=== PATIENT | female | born 1950 | race Caucasian/White ===

== ENCOUNTER 2017-10-07 14:20 | Emergency (ER) | payer MEDICARE, OTHER ==
--- NOTE | 2017-10-07 14:59 | CR ---
Chest 1V Frontal INDICATION: chest pain FINDINGS: Negative AP portable chest x-ray.
[2017-10-07] MEDS ORDERED: Aspirin 81 MG Tab.Chew PO ONE (15:47)
[2017-10-07] MEDS ORDERED: Nitroglycerin 0.4 MG Tab.SL SL ONE (15:48)
--- NOTE | 2017-10-07 16:02 | EDM.PDOC ---
ED HPI GENERAL MEDICAL PROBLEM - General Chief Complaint: Chest Pain Stated Complaint: CHEST PAIN Time Seen by Provider: 10/07/17 14:35 Source of Information: Reports: Patient History Limitations: Reports: No Limitations - History of Present Illness INITIAL COMMENTS - FREE TEXT/NARRATIVE: pt has pain on the left side and going back under the left arm. She is not feeling sob. She was at [employer] on pm. Onset: Other ( this started 3 days ago, ) Duration: Day(s): Location: Reports: Chest Associated Symptoms: Reports: Chest Pain, Shortness of Breath Left Chest Pain Score (Numeric/FACES): 2 - Related Data Allergies Allergy/AdvReac Type Severity Reaction Status Date / Time No Known Allergies Allergy Verified 10/07/17 14:36 Home Meds: Home Meds DULoxetine [Cymbalta] 1 tab PO BEDTIME 03/14/16 [History] Ketoconazole [Nizoral 2% Crm] 1 applic TOP BID PRN 03/14/16 [History] *Canabis 10/07/17 [History] Past Medical History HEENT History: Reports: Impaired Vision Respiratory History: Reports: TB Other Respiratory History: PLEURISY Gastrointestinal History: Reports: Colon Polyp Other Gastrointestinal History: diarrhea for 3 weeks 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 fine now - Past Surgical History GI Surgical History: Reports: Appendectomy Other GI Surgeries/Procedures: C DIFF COMPLICATIONS Female Surgical History: Reports: Section Musculoskeletal Surgical History: Reports: None Social & Family History - Tobacco Use Smoking Status *Q: Unknown Ever Smoked Second Hand Smoke Exposure: No - Alcohol Use Days Per Week of Alcohol Use: 1 Number of Drinks Per Day: 1 Total Drinks Per Week: 1 - Recreational Drug Use Recreational Drug Use: Yes Drug Use in Last 12 Months: Yes Recreational Drug Type: Reports: Marijuana/Hashish ED ROS GENERAL - Review of Systems Review Of Systems: See Below Constitutional: Reports: No Symptoms HEENT: Reports: No Symptoms Respiratory: Reports: Other (pain in left chest. She does not hurt to take a deep breath. ) Cardiovascular: Reports: Chest Pain Endocrine: Reports: No Symptoms GI/Abdominal: Reports: No Symptoms : Reports: No Symptoms ED EXAM, GENERAL - Physical Exam Exam: See Below Free Text/Narrative:: Pt arrived with pain in the left chest. She has not been sweaty and she has not been nauseated. Exam Limited By: No Limitations General Appearance: Alert, Mild Distress Ears: Normal TMs Nose: Normal Inspection Throat/Mouth: Normal Inspection Head: Atraumatic Neck: Normal Inspection Respiratory/Chest: No Respiratory Distress Cardiovascular: Regular Rate, Rhythm GI/Abdominal: Soft, Non-Tender (Female) Exam: Deferred Rectal (Female) Exam: Deferred Back Exam: Normal Inspection Extremities: Normal Inspection Neurological: Alert, Oriented, Normal Cognition Psychiatric: Normal Affect, Other (pleasant pt who is concerned about chest discomfort. ) Course - Vital Signs Last Recorded V/S: Last Vital Signs Temp 37.1 C 10/07/17 14:31 Pulse 98 10/07/17 14:31 Resp 15 10/07/17 14:31 BP 154/81 H 10/07/17 15:52 Pulse Ox 98 10/07/17 14:31 - Orders/Labs/Meds Orders: Active Orders 24 hr Category Date Time Status EKG Documentation Completion [RC] ASDIRECTED Care 10/07/17 14:31 Active EKG 12 Lead [EK] Routine Ther 10/07/17 14:31 Ordered Labs: Laboratory Tests 10/07/17 10/07/17 10/07/17 Range/Units 14:30 14:30 14:30 WBC 8.1 (4.5-11.0) K/uL RBC 4.68 (3.30-5.50) M/uL Hgb 14.2 (12.0-15.0) g/dL Hct 43.1 (36.0-48.0) % MCV 92 (80-98) fL MCH 30 (27-31) pg MCHC 33 (32-36) % Plt Count 351 (150-400) K/uL Neut % (Auto) 41 (36-66) % Lymph % (Auto) 46 H (24-44) % [place] % (Auto) 9 H (2-6) % Eos % (Auto) 2 (2-4) % Baso % (Auto) 1 (0-1) % Sodium 144 (140-148) mmol/L Potassium 3.5 L (3.6-5.2) mmol/L Chloride 106 (100-108) mmol/L Carbon Dioxide 25 (21-32) mmol/L Anion Gap 16.5 H (5.0-14.0) mmol/L BUN 14 (7-18) mg/dL Creatinine 0.8 (0.6-1.0) mg/dL Est Cr Clr Drug Dosing 67.27 mL/min Estimated GFR (MDRD) > 60 (>60) Glucose 96 (74-106) mg/dL Calcium 8.8 (8.5-10.1) mg/dL Total Bilirubin 0.4 (0.2-1.0) mg/dL AST 19 (15-37) U/L ALT 30 (12-78) U/L Alkaline Phosphatase 77 (46-116) U/L Creatine Kinase 23 L (26-192) U/L Troponin I < 0.017 (0.000-0.056) ng/mL Total Protein 6.7 (6.4-8.2) g/dL Albumin 3.8 (3.4-5.0) g/dL Globulin 2.9 (2.3-3.5) g/dL Albumin/Globulin Ratio 1.3 (1.2-2.2) Urine Color Urine Appearance Urine pH (4.5-8.0) Ur Specific [place] (1.008-1.030) Urine Protein (NEGATIVE) mg/dL Urine Glucose (UA) (NEGATIVE) mg/dL Urine Ketones (NEGATIVE) mg/dL Urine Occult Blood (NEGATIVE) Urine Nitrite (NEGATIVE) Urine Bilirubin (NEGATIVE) Urine Urobilinogen (NORMAL) mg/dL Ur Leukocyte Esterase (NEGATIVE) Urine RBC (0-5) Urine WBC (0-5) Ur Epithelial Cells Amorphous Sediment Urine Bacteria Urine Mucus 10/07/17 Range/Units 14:49 WBC (4.5-11.0) K/uL RBC (3.30-5.50) M/uL Hgb (12.0-15.0) g/dL Hct (36.0-48.0) % MCV (80-98) fL MCH (27-31) pg MCHC (32-36) % Plt Count (150-400) K/uL Neut % (Auto) (36-66) % Lymph % (Auto) (24-44) % [place] % (Auto) (2-6) % Eos % (Auto) (2-4) % Baso % (Auto) (0-1) % Sodium (140-148) mmol/L Potassium (3.6-5.2) mmol/L Chloride (100-108) mmol/L Carbon Dioxide (21-32) mmol/L Anion Gap (5.0-14.0) mmol/L BUN (7-18) mg/dL Creatinine (0.6-1.0) mg/dL Est Cr Clr Drug Dosing mL/min Estimated GFR (MDRD) (>60) Glucose (74-106) mg/dL Calcium (8.5-10.1) mg/dL Total Bilirubin (0.2-1.0) mg/dL AST (15-37) U/L ALT (12-78) U/L Alkaline Phosphatase (46-116) U/L Creatine Kinase (26-192) U/L Troponin I (0.000-0.056) ng/mL Total Protein (6.4-8.2) g/dL Albumin (3.4-5.0) g/dL Globulin (2.3-3.5) g/dL Albumin/Globulin Ratio (1.2-2.2) Urine Color Yellow Urine Appearance Clear Urine pH 5.0 (4.5-8.0) Ur Specific [place] 1.020 (1.008-1.030) Urine Protein Negative (NEGATIVE) mg/dL Urine Glucose (UA) Normal (NEGATIVE) mg/dL Urine Ketones Negative (NEGATIVE) mg/dL Urine Occult Blood Negative (NEGATIVE) Urine Nitrite Negative (NEGATIVE) Urine Bilirubin Negative (NEGATIVE) Urine Urobilinogen Normal (NORMAL) mg/dL Ur Leukocyte Esterase Negative (NEGATIVE) Urine RBC 0-5 (0-5) Urine WBC 0-5 (0-5) Ur Epithelial Cells Rare Amorphous Sediment Few Urine Bacteria Not seen Urine Mucus Few Meds: Medications Discontinued Medications Generic Name Dose Route Start Last Admin Trade Name Freq PRN Reason Stop Dose Admin Aspirin 324 mg 10/07/17 15:47 10/07/17 15:52 Aspirin PO 10/07/17 15:48 324 mg ONETIME ONE Administration Nitroglycerin 0.4 mg 10/07/17 15:48 10/07/17 15:52 Nitrostat SL 10/07/17 15:49 0.4 mg ONETIME ONE Administration - Re-Assessments/Exams Free Text/Narrative Re-Assessment/Exam: 10/07/17 16:03 no acute changes, --ekg, Cardiac enzymes are normal. Pt was given asa 324 Her other labs looked excelllent. . 10/07/17 16:05 Departure - Departure Time of Disposition: 16:19 Disposition: Home, Self-Care 01 Condition: Fair Clinical Impression: Chest wall pain - Discharge Information Referrals: Beverly Griffin CNM [Primary Care Provider] - Care Plan Goals: moist warm packs to the left ant chest, motrin 600mg tid for the next 5 days. , rtc if the chest pain changes. - My Orders Last 24 Hours: My Active Orders 10/07/17 14:31 EKG Documentation Completion [RC] ASDIRECTED EKG 12 Lead [EK] Routine - Assessment/Plan Last 24 Hours: My Active Orders 10/07/17 14:31 EKG Documentation Completion [RC] ASDIRECTED EKG 12 Lead [EK] Routine
[2017-10-07] MEDS ORDERED: Ketorolac 60 MG/2 ML SDV IM ONE (16:18)
[2017-10-07 16:22] VITALS: BP 151/88
== END 2017-10-07 16:39 | disposition home or self-care (01) ==
LOC: JP.ED 14:20
DX: R07.89 Other chest pain (principal)
CPT/HCPCS: 36415; 71045; 80053; 81001; 82550; 84484; 85025; 93005; 96372; 99285; A9270; J1885; 93010; 99283

== ENCOUNTER 2018-10-30 21:47 | Emergency (ER) | payer MEDICARE, BC ==
[2018-10-30 22:09] VITALS: BP 174/90
[2018-10-30] MEDS: Sulfamethoxazole/Trimethoprim 800-160 MG Tab PO ONE (22:27)
[2018-10-30] MEDS: Phenazopyridine 95 MG Tab PO ONE (22:27)
--- NOTE | 2018-10-30 22:30 | EDM.PDOC ---
ED HPI GENERAL MEDICAL PROBLEM - General Chief Complaint: Genitourinary Problem Stated Complaint: UTI Time Seen by Provider: 10/30/18 22:15 Source of Information: Reports: Patient, Old Records, RN History Limitations: Reports: No Limitations - History of Present Illness INITIAL COMMENTS - FREE TEXT/NARRATIVE: 67 yo female presents with dysuria/frequency. No fever or flank pain. No nausea/ vomiting. Onset: Gradual Onset Date: 10/29/18 Duration: Day(s): (1+) Location: Reports: Pelvis (urethra) Quality: Reports: Burning Severity: Moderate Improves with: Reports: None Worsens with: Reports: Other (time/voiding) Context: Reports: Other (See HPI) Associated Symptoms: Reports: No Other Symptoms Treatments VORTEX OPERATOR: Reports: Other (see below) (none) gu Pain Score (Numeric/FACES): 4 - Related Data Allergies Allergy/AdvReac Type Severity Reaction Status Date / Time No Known Allergies Allergy Verified 10/30/18 22:09 Home Meds: Home Meds DULoxetine [Cymbalta] 1 tab PO BEDTIME 03/14/16 [History] Ketoconazole [Nizoral 2% Crm] 1 applic TOP BID PRN 03/14/16 [History] *Canabis 10/07/17 [History] Sulfamethoxazole/Trimethoprim [Bactrim Ds Tablet] 1 each PO BID #13 tablet 10/30 [Rx] Past Medical History HEENT History: Reports: Hard of Hearing, Impaired Vision Respiratory History: Reports: TB Other Respiratory History: PLEURISY Gastrointestinal History: Reports: Chronic Diarrhea, Colon Polyp Other Gastrointestinal History: diarrhea for 3 weeks 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 fine now - Past Surgical History Respiratory Surgical History: Reports: Lung Biopsies GI Surgical History: Reports: Appendectomy, Colonoscopy, Other (See Below) Other GI Surgeries/Procedures: C DIFF COMPLICATIONS, STOOL TRANSPLANT Female Surgical History: Reports: Section Musculoskeletal Surgical History: Reports: None Social & Family History - Tobacco Use Smoking Status *Q: Never Smoker - Caffeine Use Caffeine Use: Reports: Coffee, Soda - Alcohol Use Days Per Week of Alcohol Use: 2 Number of Drinks Per Day: 1 Total Drinks Per Week: 2 - Recreational Drug Use Recreational Drug Use: No ED ROS GENERAL - Review of Systems Review Of Systems: See Below Constitutional: Reports: No Symptoms HEENT: Reports: No Symptoms Respiratory: Reports: No Symptoms Cardiovascular: Reports: No Symptoms GI/Abdominal: Reports: No Symptoms : Reports: Dysuria, Frequency, Urgency. Denies: Hematuria, Incontinence, Urinary Retention Musculoskeletal: Reports: No Symptoms Skin: Reports: No Symptoms Neurological: Reports: No Symptoms ED EXAM, RENAL/ - Physical Exam Exam: See Below Exam Limited By: No Limitations General Appearance: Alert, WD/WN, No Apparent Distress Ears: Hearing Grossly Normal Nose: Normal Inspection Throat/Mouth: Normal Inspection Head: Atraumatic, Normocephalic Neck: Normal Inspection Respiratory/Chest: No Respiratory Distress Back Exam: No: CVA Tenderness (R), CVA Tenderness (L) Extremities: Normal Inspection Neurological: Alert, Oriented, CN II-XII Intact, Normal Cognition, No Motor/ Sensory Deficits Psychiatric: Normal Affect, Normal Mood Skin Exam: Warm, Dry, Intact, Normal Color, No Rash Course - Vital Signs Last Recorded V/S: Last Vital Signs Temp 36.2 C 10/30/18 22:11 Pulse 84 10/30/18 22:11 Resp 11 L 10/30/18 22:11 BP 174/90 H 10/30/18 22:11 Pulse Ox 96 10/30/18 22:11 - Orders/Labs/Meds Orders: Active Orders 24 hr Category Date Time Status CULTURE URINE [RM] Stat Lab 10/30/18 22:00 Received Labs: Laboratory Tests 10/30/18 Range/Units 22:07 Urine Color Yellow Urine Appearance Cloudy Urine pH 5.0 (4.5-8.0) Ur Specific [place] 1.020 (1.008-1.030) Urine Protein 100 H (NEGATIVE) mg/dL Urine Glucose (UA) Normal (NEGATIVE) mg/dL Urine Ketones Negative (NEGATIVE) mg/dL Urine Occult Blood Large (NEGATIVE) Urine Nitrite Negative (NEGATIVE) Urine Bilirubin Negative (NEGATIVE) Urine Urobilinogen Normal (NORMAL) mg/dL Ur Leukocyte Esterase Large (NEGATIVE) Urine RBC Semi-packed H (0-5) Urine WBC Semi-packed H (0-5) Ur Epithelial Cells Few Amorphous Sediment Not seen Urine Bacteria Many Urine Mucus Not seen Meds: Medications Discontinued Medications Generic Name Dose Route Start Last Admin Trade Name Margaux PRN Reason Stop Dose Admin Phenazopyridine HCl 190 mg 10/30/18 22:23 Urinary Pain Relief PO 10/30/18 22:24 ONETIME ONE Trimethoprim/Sulfamethoxazole 1 tab 10/30/18 22:19 Septra Ds PO 10/30/18 22:20 ONETIME ONE Departure - Departure Time of Disposition: 22:28 Disposition: Home, Self-Care 01 Condition: Good Clinical Impression: Cystitis - Discharge Information *PRESCRIPTION DRUG MONITORING PROGRAM REVIEWED*: No *COPY OF PRESCRIPTION DRUG MONITORING REPORT IN PATIENT ALEKSANDER: No Prescriptions: Sulfamethoxazole/Trimethoprim [Bactrim Ds Tablet] 1 each PO BID #13 tablet Instructions: Urinary Tract Infection, Adult, [id number] Referrals: Beverly Griffin CNM [Primary Care Provider] - Care Plan Goals: Drink ample water. Take TMP/SMZ every 12 hrs. Use AZO per package instructions for discomfort in your bladder/urethra. Recheck in the clinic in 3 days if not improving so your provider can reference your culture to possibly direct antibiotic choice. - My Orders Last 24 Hours: My Active Orders 10/30/18 22:00 CULTURE URINE [RM] Stat - Assessment/Plan Last 24 Hours: My Active Orders 10/30/18 22:00 CULTURE URINE [RM] Stat
== END 2018-10-30 22:36 | disposition home or self-care (01) ==
LOC: JP.ED 21:47
DX: N30.90 Cystitis, unspecified without hematuria (principal)
CPT/HCPCS: 81001; 87086; 99283; 99284; A9270; 87088; 87186

== ENCOUNTER 2018-12-06 14:03 | Emergency (ER) | payer MEDICARE, BC ==
--- NOTE | 2018-12-06 14:27 | EDM.PDOC ---
ED HPI GENERAL MEDICAL PROBLEM - General Chief Complaint: Chest Pain Stated Complaint: CHEST PAIN Time Seen by Provider: 12/06/18 14:25 Source of Information: Reports: Patient, Old Records, RN History Limitations: Reports: No Limitations - History of Present Illness INITIAL COMMENTS - FREE TEXT/NARRATIVE: 67 yo female with fibromyalgia hx and a positive FHx of CAD presents with several days of mild L upper/anterior chest pain that is mild in severity and not associated with diaphoresis, SOB, or nausea. Pain is not related to breathing. No fever or cough. No calf pain or unilateral leg swelling. Has not taken anything for the pain. Pain radiates out in all directions and seems to be less severe the further out it goes. She presented to the clinic today and was sent to the ER. She says her fibromyalgia pain is usually more symmetrical than this. Onset: Gradual Onset Date: 12/03/18 Duration: Day(s): (3+), Constant Location: Reports: Chest Quality: Reports: Dull Severity: Mild Improves with: Reports: None Worsens with: Reports: None Context: Reports: Other (See HPI) Associated Symptoms: Reports: Chest Pain. Denies: Cough, Diaphoresis, Fever/ Chills, Nausea/Vomiting, Rash, Shortness of Breath Treatments BALANCE CLERK: Reports: Other (see below) (none) Left Chest Pain Score (Numeric/FACES): 4 - Related Data Allergies Allergy/AdvReac Type Severity Reaction Status Date / Time No Known Allergies Allergy Verified 10/30/18 22:09 Home Meds: Home Meds DULoxetine [Cymbalta] 60 tab PO BEDTIME 03/14/16 [History] Past Medical History HEENT History: Reports: Hard of Hearing, Impaired Vision Respiratory History: Reports: TB Other Respiratory History: PLEURISY Gastrointestinal History: Reports: Chronic Diarrhea, Colon Polyp Other Gastrointestinal History: diarrhea for 3 weeks 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 fine now - Past Surgical History Respiratory Surgical History: Reports: Lung Biopsies GI Surgical History: Reports: Appendectomy, Colonoscopy, Other (See Below) Other GI Surgeries/Procedures: C DIFF COMPLICATIONS, STOOL TRANSPLANT Female Surgical History: Reports: Section Musculoskeletal Surgical History: Reports: None Social & Family History - Tobacco Use Smoking Status *Q: Never Smoker - Caffeine Use Caffeine Use: Reports: Coffee, Soda - Recreational Drug Use Recreational Drug Use: Yes Recreational Drug Type: Reports: Marijuana/Hashish ED ROS GENERAL - Review of Systems Review Of Systems: See Below Constitutional: Reports: No Symptoms HEENT: Reports: No Symptoms Respiratory: Reports: No Symptoms. Denies: Shortness of Breath, Wheezing, Pleuritic Chest Pain, Cough, Sputum, Hemoptysis Cardiovascular: Reports: Chest Pain. Denies: Dyspnea on Exertion, Edema, Palpitations Endocrine: Reports: No Symptoms GI/Abdominal: Reports: No Symptoms : Reports: No Symptoms Musculoskeletal: Reports: No Symptoms Skin: Reports: No Symptoms Neurological: Reports: No Symptoms Psychiatric: Reports: No Symptoms ED EXAM, GENERAL - Physical Exam Exam: See Below Exam Limited By: No Limitations General Appearance: Alert, WD/WN, No Apparent Distress Eye Exam: Bilateral Eye: Normal Inspection Ears: Normal External Exam, Normal Canal, Hearing Grossly Normal Ear Exam: Bilateral Ear: Auricle Normal, Canal Normal, TM normal Nose: Normal Inspection, Normal Mucosa, No Blood Throat/Mouth: Normal Inspection, Normal Lips, Normal Oropharynx, Normal Voice, No Airway Compromise Head: Atraumatic, Normocephalic Neck: Normal Inspection Respiratory/Chest: No Respiratory Distress, Lungs Clear, Normal Breath Sounds, No Accessory Muscle Use, Chest Non-Tender Cardiovascular: Regular Rate, Rhythm, No Edema GI/Abdominal: Normal Bowel Sounds, Soft, Non-Tender, No Distention Back Exam: Normal Inspection. No: CVA Tenderness (R), CVA Tenderness (L) Extremities: Normal Inspection, Normal Range of Motion, Non-Tender, No Pedal Edema. No: Pedal Edema Neurological: Alert, Oriented, CN II-XII Intact, Normal Cognition, No Motor/ Sensory Deficits Psychiatric: Normal Affect, Normal Mood Skin Exam: Warm, Dry, Intact, Normal Color, No Rash EKG INTERPRETATION EKG Date: 12/06/18 Time: 14:15 Rhythm: NSR Rate (Beats/Min): 64 [place]: Normal P-Wave: Present QRS: Normal ST-T: Normal QT: Normal Comparison: No Change Course - Vital Signs Last Recorded V/S: Last Vital Signs Temp 35.2 C L 12/06/18 14:18 Pulse 62 12/06/18 15:13 Resp 16 12/06/18 15:13 BP 140/76 12/06/18 15:13 Pulse Ox 96 12/06/18 15:13 - Orders/Labs/Meds Orders: Active Orders 24 hr Category Date Time Status EKG Documentation Completion [RC] ASDIRECTED Care 12/06/18 14:23 Active Chest 2V [CR] Stat Exams 12/06/18 14:38 Taken EKG 12 Lead [EK] Routine Ther 12/06/18 14:23 Ordered Labs: Laboratory Tests 12/06/18 Range/Units 14:49 Troponin I < 0.017 (0.000-0.056) ng/mL - Radiology Interpretation Free Text/Narrative:: CXR-neg Departure - Departure Time of Disposition: 15:24 Disposition: Home, Self-Care 01 Condition: Good Clinical Impression: Nonspecific chest pain, Atypical chest pain Instructions: Nonspecific Chest Pain, [id number] Referrals: Beverly Griffin CNM [Primary Care Provider] - Forms: ED Department Discharge Additional Instructions: Follow up with your provider if symptoms persist to discuss any need for exercise stress testing, or other tests. - My Orders Last 24 Hours: My Active Orders 12/06/18 14:23 EKG Documentation Completion [RC] ASDIRECTED EKG 12 Lead [EK] Routine 12/06/18 14:38 Chest 2V [CR] Stat - Assessment/Plan Last 24 Hours: My Active Orders 12/06/18 14:23 EKG Documentation Completion [RC] ASDIRECTED EKG 12 Lead [EK] Routine 12/06/18 14:38 Chest 2V [CR] Stat
[2018-12-06 15:14] VITALS: BP 140/76
--- NOTE | 2018-12-06 15:40 | CRLCR ---
INDICATION: Left anterior chest pain. TECHNIQUE: Two views of the chest PA and lateral. COMPARISON: 10/07/2017 Findings : The heart and mediastinum are unchanged. Lungs are clear. No consolidations or pleural effusions are identified. Trachea is midline. No pneumothorax. IMPRESSION: No evidence of acute disease. Dictated by Paco Viveros MD @ Dec 06 2018 3:36PM Signed by Dr. Paco Viveros @ Dec 06 2018 3:38PM
== END 2018-12-06 15:30 | disposition home or self-care (01) ==
LOC: JP.ED 14:03
DX: R07.89 Other chest pain (principal)
CPT/HCPCS: 36415; 71046; 84484; 93005; 93010; 99285; 99285-25

== ENCOUNTER 2019-05-27 11:05 | Emergency (ER) | payer MEDICARE, BC ==
[2019-05-27 11:21] VITALS: BP 148/89; PULSE 74
--- NOTE | 2019-05-27 12:02 | EDM.PDOC ---
ED HPI GENERAL MEDICAL PROBLEM - General Chief Complaint: ENT Problem Stated Complaint: PAIN IN EARS Time Seen by Provider: 05/27/19 11:45 Source of Information: Reports: Patient History Limitations: Reports: No Limitations - History of Present Illness INITIAL COMMENTS - FREE TEXT/NARRATIVE: 60-year-old female with left-sided ear pain for the past 2 days. She has a hearing aid appointment coming up on Wednesday, so went into the clinic and had her ears washed out on but has had significant pain on the left side since that time. Her hearing has been significantly worsened especially on the left. No fevers or chills, no sore throat. She is on Macrobid for a UTI. Duration: Day(s): (2 days) Location: Reports: Other (Left ear) Associated Symptoms: Denies: Fever/Chills, Headaches, Loss of Appetite, Nausea/ Vomiting, Shortness of Breath Left Ear Pain Score (Numeric/FACES): 5 - Related Data Allergies Allergy/AdvReac Type Severity Reaction Status Date / Time No Known Allergies Allergy Verified 05/27/19 11:19 Home Meds: Home Meds DULoxetine [Cymbalta] 60 tab PO BEDTIME 03/14/16 [History] Nitrofurantoin Roosevelt/Macrocryst [Nitrofurantoin Roosevelt-MCR] 100 mg PO DAILY [History] Nitroglycerin 0.4 mg SL ASDIRECTED 05/27/19 [History] atorvaSTATin Calcium [Atorvastatin Calcium] 40 mg PO BEDTIME 05/27/19 [History] Past Medical History HEENT History: Reports: Hard of Hearing, Impaired Vision Cardiovascular History: Reports: High Cholesterol Respiratory History: Reports: TB Other Respiratory History: PLEURISY Gastrointestinal History: Reports: Chronic Diarrhea, Colon Polyp Other Gastrointestinal History: diarrhea for 3 weeks [employer] History: Reports: Endometrial Ablation, 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 fine now - Past Surgical History Respiratory Surgical History: Reports: Lung Biopsies GI Surgical History: Reports: Appendectomy, Colonoscopy, Other (See Below) Other GI Surgeries/Procedures: C DIFF COMPLICATIONS, STOOL TRANSPLANT Female Surgical History: Reports: Section Musculoskeletal Surgical History: Reports: None Social & Family History - Tobacco Use Smoking Status *Q: Never Smoker - Caffeine Use Caffeine Use: Reports: Coffee, Soda, Tea - Recreational Drug Use Recreational Drug Use: Yes Recreational Drug Type: Reports: Marijuana/Hashish ED ROS ENT - Review of Systems Review Of Systems: See Below Constitutional: Denies: Fever, Chills HEENT: Reports: Ear Pain, Hearing Loss (Bilateral) Respiratory: Denies: Shortness of Breath Cardiovascular: Reports: Other (Mild intermittent chest pain which is being evaluated at the clinic) Skin: Reports: No Symptoms Neurological: Reports: Other (Significant hearing loss). Denies: Headache ED EXAM, ENT - Physical Exam Exam: See Below Exam Limited By: No Limitations General Appearance: Alert, No Apparent Distress Ears: Other (Still some impacted cerumen bilaterally. The right TM is visualized and is normal, nonerythematous. The left however has significant canal erythema, distortion of the TM with dark erythema. It is partially obstructed by cerumen.) Respiratory/Chest: No Respiratory Distress Course - Vital Signs Last Recorded V/S: Last Vital Signs Temp 96.1 F 05/27/19 11:15 Pulse 74 05/27/19 11:15 Resp 16 05/27/19 11:15 BP 148/89 H 05/27/19 11:15 Pulse Ox 99 05/27/19 11:15 - Re-Assessments/Exams Free Text/Narrative Re-Assessment/Exam: 05/27/19 12:01 The remainder of the cerumen was attempted to be removed from the left ear but was unsuccessful. It was partially removed exposing more of the tympanic membrane, no perforation was seen but there was significant erythema and distortion. Patient will be placed on Augmentin 875 twice a day for the next 10 days, and should recheck next week with ENT if not improving satisfactorily. I would hold off on getting checked for hearing aids until she is back to baseline. Also ibuprofen or naproxen will help for pain. Departure - Departure Time of Disposition: 12:09 Disposition: Home, Self-Care 01 Clinical Impression: Left acute otitis media Otitis media Qualifiers: Otitis media type: suppurative Chronicity: acute Laterality: left Recurrence: non-recurrent Spontaneous tympanic membrane rupture: without spontaneous rupture Qualified Code(s): H66.002 - Acute suppurative otitis media without spontaneous rupture of ear drum, left ear - Discharge Information Instructions: Otitis Media, Adult Referrals: Bibi Mendoza DO [Primary Care Provider] - Forms: ED Department Discharge Care Plan Goals: Take Augmentin twice daily as directed with food, ibuprofen or naproxen will help with pain. Recheck early next week with your regular doctor if not significantly improving.
== END 2019-05-27 12:10 | disposition home or self-care (01) ==
LOC: JP.ED 11:05
DX: H66.002 Acute suppurative otitis media without spontaneous rupture of ear drum, left ear (principal); H61.23 Impacted cerumen, bilateral; F32.9 Major depressive disorder, single episode, unspecified; Z90.49 Acquired absence of other specified parts of digestive tract; Z79.899 Other long term (current) drug therapy
CPT/HCPCS: 99282

== ENCOUNTER 2022-03-24 14:05 | Emergency (ER) | payer MEDICARE, BC ==
[2022-03-24 16:55] VITALS: BP 125/70; PULSE 85
[2022-03-24] MEDS ORDERED: Furosemide 40 MG Tab PO ONE (17:54)
== END 2022-03-24 18:34 | disposition home or self-care (01) ==
LOC: JP.ED 14:05
DX: I27.20 Pulmonary hypertension, unspecified (principal); I50.9 Heart failure, unspecified; E78.00 Pure hypercholesterolemia, unspecified; Z88.1 Allergy status to other antibiotic agents; Z79.899 Other long term (current) drug therapy
CPT/HCPCS: 36415; 71046; 80048; 85025; 99285; A9270